=== PATIENT | female | born 1960 | race African-American/Black ===

== ENCOUNTER 2017-01-21 10:28 | Emergency (ER) | payer MEDICAID ==
[2017-01-21] MEDS ORDERED: CLONIDINE HCL 0.1 MG TABLET PO ONE (12:19)
--- NOTE | 2017-01-21 12:21 | ER Document Report ---
ED Medical Screen (RME) - General Chief Complaint: High Blood Pressure Stated Complaint: BLOOD PRESSURE PROBLEM Time Seen by Provider: 01/21/17 12:19 Notes: Patient was referred from her primary care doctor's office due to high blood pressure. Patient is prescribed clonidine 0.1 mg 2 times per day. She states that she never takes it twice a day and sometimes does not take it at all because she does not like the fact that it makes her sleepy. She says today she was going to her routine 3 month primary care visit. She states that the visit was noticed that her blood pressure was very high so she was sent here. She says 1 week ago she was having chest pain and dizziness however no chest pain for the last several days. No headaches for the last several days. She is still felt a little lightheaded and dizzy however today and yesterday. TRAVEL OUTSIDE OF THE [place] IN LAST 30 DAYS: No - Related Data Allergies/Adverse Reactions: No Known Allergies Allergy (Verified 09/06/14 11:53) Past Medical History - Past Medical History Cardiac Medical History: Reports: Hx Congestive Heart Failure - Grade 1/4 left ventricular diastolic dysfunction, Hx Heart Attack, Hx Hypertension Neurological Medical History: Reports: Hx Seizures Endocrine Medical History: Reports: Hx Diabetes Mellitus Type 2 Renal/ Medical History: Denies: Hx Peritoneal Dialysis Psychiatric Medical History: Reports: Hx Depression Past Surgical History: Reports: Hx Orthopedic Surgery - bilat feet - Immunizations Hx Diphtheria, Pertussis, Tetanus Vaccination: No Physical Exam - Vital signs Vitals: Temp Pulse Resp BP Pulse Ox 97.8 F 68 20 216/114 H 98 01/21/17 10:42 01/21/17 10:42 01/21/17 10:42 01/21/17 10:42 01/21/17 10:42 Course - Vital Signs Vital signs: Temp Pulse Resp BP Pulse Ox 97.8 F 68 20 240/110 H 98 01/21/17 10:42 01/21/17 10:42 01/21/17 10:42 01/21/17 12:10 01/21/17 10:42
[2017-01-21 12:55] LABS: ABSOLUTE BASOPHILS # (AUTO) 0.1 10^3/uL (0.0-0.2); ABSOLUTE EOSINOPHILS # (AUTO) 0.1 10^3/uL (0.0-0.6); ABSOLUTE MONOCYTES (AUTO) 0.6 10^3/uL (0.1-1.4); ABSOLUTE NEUT (AUTO) 5.7 10^3/uL (1.7-8.2); EOSINOPHILS % (AUTO) 1.2 % (0-6); HEMATOCRIT 41.4 % (36.0-47.0); HEMOGLOBIN 13.6 g/dL (12.0-15.5); HGB HCT DIFFERENCE -0.6; LYMPHOCYTES % (AUTO) 23.3 % (13-45); MEAN CORPUSCULAR HEMOGLOBIN 25.1 pg (27.0-33.4); MEAN CORPUSCULAR HGB CONC 32.9 g/dL (32.0-36.0); MEAN CORPUSCULAR VOLUME 76 fl (80-97); MONOCYTES % (AUTO) 6.9 % (3-13); RED BLOOD COUNT 5.43 10^6/uL (3.72-5.28); RED CELL DISTRIBUTION WIDTH 19.3 % (11.5-14.0); SEGMENTED NEUTROPHILS % (AUTO) 67.6 % (42-78); WHITE BLOOD COUNT 8.4 10^3/uL (4.0-10.5)
[2017-01-21 13:12] LABS: APPEARANCE,URINE CLEAR; BILIRUBIN,URINE NEGATIVE (NEGATIVE); GLUCOSE, URINE 150 mg/dL (NEGATIVE); KETONES,URINE NEGATIVE (NEGATIVE); LEUKOCYTE ESTERASE,URINE NEGATIVE (NEGATIVE); NITRITE,URINE NEGATIVE (NEGATIVE); PROTEIN,URINE NEGATIVE (NEGATIVE); URINE SPECIFIC GRAVITY 1.018; UROBILINOGEN,URINE NEGATIVE mg/dL (<2.0)
[2017-01-21 13:13] LABS: ALANINE AMINOTRANSFERASE 29 U/L (9-52); ALBUMIN 4.4 g/dL (3.5-5.0); ALKALINE PHOSPHATASE 108 U/L (38-126); ANION GAP 17 (5-19); ASPARTATE AMINO TRANSFERASE 28 U/L (14-36); BILIRUBIN,DIRECT 0.3 mg/dL (0.0-0.4); BILIRUBIN,TOTAL 0.3 mg/dL (0.2-1.3); BLOOD UREA NITROGEN 13 mg/dL (7-20); CALCIUM 9.5 mg/dL (8.4-10.2); CARBON DIOXIDE 21 mmol/L (22-30); CHLORIDE 107 mmol/L (98-107); CREATININE RESULT 0.85 mg/dL (0.52-1.25); GLUCOSE 234 mg/dL (75-110); POTASSIUM 3.6 mmol/L (3.6-5.0); SODIUM 144.9 mmol/L (137-145); TOTAL PROTEIN 8.3 g/dL (6.3-8.2)
--- NOTE | 2017-01-21 15:43 | ER Document Report ---
ED General - General Chief Complaint: High Blood Pressure Stated Complaint: BLOOD PRESSURE PROBLEM Time Seen by Provider: 01/21/17 12:19 TRAVEL OUTSIDE OF THE [place] IN LAST 30 DAYS: No - HPI Patient complains to provider of: Elevated blood pressure Notes: Patient was brought in today for evaluation of elevated blood pressure. Patient states she is currently on blood pressure medication however 1 makes her very sleepy therefore she does not like taking it she identifies his medication as clonidine patient states last time she took her clonidine was approximately less than 36 hours ago. Patient denies headache chest pain nausea vomiting fevers chills. Upon my evaluation patient is ambulating around the room anxious to leave the ER. - Related Data Allergies/Adverse Reactions: No Known Allergies Allergy (Verified 09/06/14 11:53) Past Medical History - Social History Smoking Status: Unknown if Ever Smoked Family History: CVA - mom dies at 42 year old from stroke father alive - Past Medical History Cardiac Medical History: Reports: Hx Congestive Heart Failure - Grade 1/4 left ventricular diastolic dysfunction, Hx Heart Attack, Hx Hypertension Neurological Medical History: Reports: Hx Seizures Endocrine Medical History: Reports: Hx Diabetes Mellitus Type 2 Renal/ Medical History: Denies: Hx Peritoneal Dialysis Psychiatric Medical History: Reports: Hx Depression Past Surgical History: Reports: Hx Orthopedic Surgery - bilat feet - Immunizations Hx Diphtheria, Pertussis, Tetanus Vaccination: No Hx Pneumococcal Vaccination: 11/16/13 Review of Systems - Review of Systems Constitutional: Other - Hypertension EENT: No symptoms reported Cardiovascular: No symptoms reported Respiratory: No symptoms reported Gastrointestinal: No symptoms reported Genitourinary: No symptoms reported Female Genitourinary: No symptoms reported Musculoskeletal: No symptoms reported Skin: No symptoms reported Hematologic/Lymphatic: No symptoms reported Neurological/Psychological: No symptoms reported Physical Exam - Vital signs Vitals: Temp Pulse Resp BP Pulse Ox 97.8 F 68 20 216/114 H 98 01/21/17 10:42 01/21/17 10:42 01/21/17 10:42 01/21/17 10:42 01/21/17 10:42 Interpretation: Hypertensive - General General appearance: Appears well, Alert - HEENT Head: Normocephalic, Atraumatic Eyes: Normal Pupils: PERRL - Respiratory Respiratory status: No respiratory distress Chest status: Nontender Breath sounds: Normal Chest palpation: Normal - Cardiovascular Rhythm: Regular Heart sounds: Normal auscultation Murmur: No - Abdominal Inspection: Normal Distension: No distension Bowel sounds: Normal Tenderness: Nontender Organomegaly: No organomegaly - Back Back: Normal, Nontender - Extremities General upper extremity: Normal inspection, Nontender, Normal color, Normal ROM , Normal temperature General lower extremity: Normal inspection, Nontender, Normal color, Normal ROM , Normal temperature, Normal weight bearing. No: French's sign - Neurological Neuro grossly intact: Yes Cognition: Normal Orientation: AAOx4 Thomson Coma Scale Eye Opening: Spontaneous Thomson Coma Scale Verbal: Oriented Thomson Coma Scale Motor: Obeys Commands Thomson Coma Scale Total: 15 Speech: Normal Motor strength normal: LUE, RUE, LLE, RLE Sensory: Normal - Psychological Associated symptoms: Normal affect, Normal mood - Skin Skin Temperature: Warm Skin Moisture: Dry Skin Color: Normal Course - Re-evaluation Re-evalutation: 01/21/17 18:42 Patient is noncompliant with her medications laboratory studies not show any signs of acute endorgan injury patient has no signs of urgency or emergency will discharge home. - Vital Signs Vital signs: Temp Pulse Resp BP Pulse Ox 97.8 F 68 20 240/110 H 98 01/21/17 10:42 01/21/17 10:42 01/21/17 10:42 01/21/17 12:10 01/21/17 10:42 - Laboratory Result Diagrams: 01/21/17 12:36 01/21/17 12:36 Laboratory results interpreted by me: 01/21/17 01/21/17 01/21/17 12:36 12:36 12:56 RBC 5.43 H MCV 76 L MCH 25.1 L RDW 19.3 H Carbon Dioxide 21 L Glucose 234 H Total Protein 8.3 H Urine Glucose (UA) 150 H Discharge - Discharge Clinical Impression: Hypertension Qualifiers: Hypertension type: unspecified Qualified Code(s): I10 - Essential (primary) hypertension Condition: Good Disposition: HOME, SELF-CARE Instructions: High Blood Pressure ([facility]), High Blood Pressure, Requiring Treatment ([facility]) Additional Instructions: Your blood pressure is elevated today please take your blood pressure medication as her doctor as prescribed. Please make sure that she follow-up with your kidney specialist and your primary care physician for further control of your blood pressure. Your blood pressure will be elevated if you do not take your blood pressure medication. Return to the ER for any concerns.
[2017-01-21 16:05] VITALS: BP 205/107
== END 2017-01-21 15:48 | disposition home or self-care (01) ==
LOC: ER 10:28
DX: I10 Essential (primary) hypertension (principal); Z79.899 Other long term (current) drug therapy
CPT/HCPCS: 99283; 36415; 85025; 80053; 81001; J3490

== ENCOUNTER 2018-01-31 16:51 | Emergency (ER) | payer MEDICAID ==
[2018-01-31 17:01] VITALS: BP 189/99
--- NOTE | 2018-01-31 19:03 | ER Document Report ---
ED General - General Chief Complaint: Insect Bite Stated Complaint: FOREIGN BODIES Time Seen by Provider: 01/31/18 18:02 Notes: 57-year-old female patient to the emergency department chief complaint of insects crawling out of her and all over her. Patient states that over the last several weeks she has noticed long stringy white bugs with large heads and brown legs and feet which float through the air and crawl over her. They are getting in her nose, ears and skin. Mostly the bugs are crawling into her eyes. States that they will jump out of her if she rubs apple cider vinegar on herself, bleach or Listerine. States that she has bugs jumping out of her eyes and nose. Has been having some nosebleeds. States that she has been spraying bug spray on herself and in the house. States that other people can see them and she is not crazy. TRAVEL OUTSIDE OF THE [place] IN LAST 30 DAYS: No - HPI Onset/Duration: Gradual, Worse Quality of pain: No pain Severity: Moderate Associated symptoms: None - Related Data Allergies/Adverse Reactions: No Known Allergies Allergy (Verified 09/06/14 11:53) Past Medical History - General Information source: Patient - Social History Smoking Status: Unknown if Ever Smoked Frequency of alcohol use: None Drug Abuse: None Lives with: Alone Family History: CVA - mom dies at 42 year old from stroke father alive - Past Medical History Cardiac Medical History: Reports: Hx Congestive Heart Failure - Grade 1/4 left ventricular diastolic dysfunction, Hx Heart Attack, Hx Hypertension Neurological Medical History: Reports: Hx Seizures Endocrine Medical History: Reports: Hx Diabetes Mellitus Type 2 Renal/ Medical History: Denies: Hx Peritoneal Dialysis Psychiatric Medical History: Reports: Hx Depression Past Surgical History: Reports: Hx Orthopedic Surgery - bilat feet - Immunizations Hx Diphtheria, Pertussis, Tetanus Vaccination: No Hx Pneumococcal Vaccination: 11/16/13 Review of Systems - Review of Systems Notes: Constitutional: denies: Chills, Diaphoresis, Fever, Malaise, Weakness EENT: denies: Eye discharge, Blurred vision, Tearing, Double vision, Nose congestion, Nose discharge, Throat swelling, Mouth pain Cardiovascular: denies: Palpitations, Heart racing, Orthopnea, Dyspnea, Chest pain Respiratory: denies: Cough, Hurts to breathe, Wheezing, Shortness of breath Gastrointestinal: denies: Abdominal pain, Diarrhea, Nausea, Vomiting, Black stools, bright red blood in stool Genitourinary: denies: Burning, Dysuria, Discharge, Frequency, Flank pain, Hematuria Musculoskeletal: denies: Joint pain, Joint swelling, Muscle pain, Muscle stiffness, back pain Hematologic/Lymphatic: denies: Anemia, Easy bleeding, Easy bruising, Blood clots Neurological/Psychological: denies: Confusion, Dementia, Depression, Loss of consciousness. Is complaining of bugs crawling all over her Skin: No lesions, no masses, no skin breakdown, no abscesses Physical Exam - Vital signs Vitals: Temp Pulse Resp BP Pulse Ox 98.4 F 95 20 189/99 H 99 01/31/18 16:59 01/31/18 16:59 01/31/18 16:59 01/31/18 16:59 01/31/18 16:59 Interpretation: Normal - General General appearance: Appears well, Alert - HEENT Head: Normocephalic, Atraumatic Eyes: Normal Cornea: Normal Eyelashes: Normal Pupils: PERRL Nasal: Normal - Respiratory Respiratory status: No respiratory distress Chest status: Nontender Breath sounds: Normal Chest palpation: Normal - Cardiovascular Rhythm: Regular Heart sounds: Normal auscultation Murmur: No - Abdominal Inspection: Normal Distension: No distension Bowel sounds: Normal Tenderness: Nontender Organomegaly: No organomegaly - Back Back: Normal, Nontender - Extremities General upper extremity: Normal inspection, Nontender, Normal color, Normal ROM , Normal temperature General lower extremity: Normal inspection, Nontender, Normal color, Normal ROM , Normal temperature, Normal weight bearing. No: French's sign - Neurological Neuro grossly intact: Yes Cognition: Normal Orientation: AAOx4 [place] Coma Scale Eye Opening: Spontaneous [place] Coma Scale Verbal: Oriented [place] Coma Scale Motor: Obeys Commands [place] Coma Scale Total: 15 Speech: Normal Motor strength normal: LUE, RUE, LLE, RLE Sensory: Normal - Psychological Associated symptoms: Normal affect, Normal mood, Visual hallucinations - And is convinced that she is seeing bugs on her at this time however this physician was unable to see any bugs crawling on her. I did use a blue light as well as ambient light and there were no obvious findings., Other - Skin Skin Temperature: Warm Skin Moisture: Dry Skin Color: Normal, Other - She does have a few small areas of redness on the second and third digit on her right foot distally. Does not appear to be any active parasites on her body. There are no active bugs. There does not appear to be any breakdown in the skin. Course - Re-evaluation Re-evalutation: 01/31/18 20:21 At this time I believe the patient is developing some delusional parasitosis. I have explained to her that I am concerned and that she needs to be evaluated by mental health. I am concerned as well that she may be harming herself by placing chemicals on her skin. She is currently here voluntarily. She is willing to stay overnight. I am going to check her labs and give her some Haldol and have mental health evaluate her for possible acute psychosis versus delusional issues. 01/31/18 21:27 Laboratory 01/31/18 01/31/18 01/31/18 19:55 19:55 19:55 WBC 8.0 RBC 4.77 Hgb 14.1 Hct 41.9 MCV 88 MCH 29.6 MCHC 33.7 RDW 14.5 H Plt Count 181 Seg Neutrophils % 58.3 Lymphocytes % 30.5 Monocytes % 8.2 Eosinophils % 1.7 Basophils % 1.3 Absolute Neutrophils 4.7 Absolute Lymphocytes 2.4 Absolute Monocytes 0.7 Absolute Eosinophils 0.1 Absolute Basophils 0.1 Sodium 139.6 Potassium 4.0 Chloride 106 Carbon Dioxide 26 Anion Gap 8 BUN 16 Creatinine 1.10 Est GFR ( Amer) > 60 Est GFR (Non-Af Amer) 51 L Glucose 97 Calcium 9.3 Total Bilirubin 0.3 Direct Bilirubin 0.1 Neonat Total Bilirubin Not Reportable Neonat Direct Bilirubin Not Reportable Neonat Indirect Bili Not Reportable AST 35 ALT 25 Alkaline Phosphatase 78 Total Protein 7.0 Albumin 3.9 Urine Color COLORLESS Urine Appearance CLEAR Urine pH 6.0 Ur Specific [place] 1.009 Urine Protein NEGATIVE Urine Glucose (UA) NEGATIVE Urine Ketones NEGATIVE Urine Blood NEGATIVE Urine Nitrite NEGATIVE Urine Bilirubin NEGATIVE Urine Urobilinogen NEGATIVE Ur Leukocyte Esterase NEGATIVE Urine WBC (Auto) 0 Urine RBC (Auto) 1 Squamous Epi Cells Auto <1 Urine Mucus (Auto) RARE Urine Ascorbic Acid NEGATIVE Salicylates 2.5 Urine Opiates Screen Urine Methadone Screen Acetaminophen < 10 L Ur Barbiturates Screen Ur Phencyclidine Scrn Ur Amphetamines Screen U Benzodiazepines Scrn Urine Cocaine Screen U Marijuana (THC) Screen Serum Alcohol < 10 01/31/18 19:55 WBC RBC Hgb Hct MCV MCH MCHC RDW Plt Count Seg Neutrophils % Lymphocytes % Monocytes % Eosinophils % Basophils % Absolute Neutrophils Absolute Lymphocytes Absolute Monocytes Absolute Eosinophils Absolute Basophils Sodium Potassium Chloride Carbon Dioxide Anion Gap BUN Creatinine Est GFR ( Amer) Est GFR (Non-Af Amer) Glucose Calcium Total Bilirubin Direct Bilirubin Neonat Total Bilirubin Neonat Direct Bilirubin Neonat Indirect Bili AST ALT Alkaline Phosphatase Total Protein Albumin Urine Color Urine Appearance Urine pH Ur Specific [place] Urine Protein Urine Glucose (UA) Urine Ketones Urine Blood Urine Nitrite Urine Bilirubin Urine Urobilinogen Ur Leukocyte Esterase Urine WBC (Auto) Urine RBC (Auto) Squamous Epi Cells Auto Urine Mucus (Auto) Urine Ascorbic Acid Salicylates Urine Opiates Screen NEGATIVE Urine Methadone Screen NEGATIVE Acetaminophen Ur Barbiturates Screen NEGATIVE Ur Phencyclidine Scrn NEGATIVE Ur Amphetamines Screen NEGATIVE U Benzodiazepines Scrn NEGATIVE Urine Cocaine Screen NEGATIVE U Marijuana (THC) Screen UNCONFIRMED POSITIVE Serum Alcohol - Vital Signs Vital signs: Temp Pulse Resp BP Pulse Ox 98.4 F 95 20 189/99 H 99 01/31/18 16:59 01/31/18 16:59 01/31/18 16:59 01/31/18 16:59 01/31/18 16:59 - Laboratory Result Diagrams: 01/31/18 19:55 01/31/18 19:55 Laboratory results interpreted by me: 01/31/18 01/31/18 19:55 19:55 RDW 14.5 H Est GFR (Non-Af Amer) 51 L Acetaminophen < 10 L - EKG Interpretation by Id EKG shows normal: Intervals, QRS Complexes, ST-T Waves. abnormal: Sherman - left axis Discharge - Discharge Clinical Impression: Delusions of parasitosis Condition: Fair
[2018-01-31] MEDS ORDERED: HALOPERIDOL 5 MG TABLET PO ONE (19:27)
[2018-01-31 20:14] LABS: ABSOLUTE BASOPHILS # (AUTO) 0.1 10^3/uL (0.0-0.2); ABSOLUTE EOSINOPHILS # (AUTO) 0.1 10^3/uL (0.0-0.6); ABSOLUTE LYMPHOCYTES (AUTO) 2.4 10^3/uL (0.5-4.7); ABSOLUTE MONOCYTES (AUTO) 0.7 10^3/uL (0.1-1.4); ABSOLUTE NEUT (AUTO) 4.7 10^3/uL (1.7-8.2); BASOPHILS % (AUTO) 1.3 % (0-2); EOSINOPHILS % (AUTO) 1.7 % (0-6); HEMATOCRIT 41.9 % (36.0-47.0); HEMOGLOBIN 14.1 g/dL (12.0-15.5); LYMPHOCYTES % (AUTO) 30.5 % (13-45); MEAN CORPUSCULAR HEMOGLOBIN 29.6 pg (27.0-33.4); MEAN CORPUSCULAR HGB CONC 33.7 g/dL (32.0-36.0); MEAN CORPUSCULAR VOLUME 88 fl (80-97); MONOCYTES % (AUTO) 8.2 % (3-13); PLATELET COUNT 181 10^3/uL (150-450); RED BLOOD COUNT 4.77 10^6/uL (3.72-5.28); RED CELL DISTRIBUTION WIDTH 14.5 % (11.5-14.0); SEGMENTED NEUTROPHILS % (AUTO) 58.3 % (42-78); TOTAL CELLS COUNTED % (AUTO) 100 %
[2018-01-31] MEDS ORDERED: BENZTROPINE MESYLATE 1 MG TABLET PO ONE (20:22)
[2018-01-31 20:23] LABS: ALANINE AMINOTRANSFERASE 25 U/L (9-52); ALBUMIN 3.9 g/dL (3.5-5.0); ALKALINE PHOSPHATASE 78 U/L (38-126); ANION GAP 8 (5-19); ASPARTATE AMINO TRANSFERASE 35 U/L (14-36); BILIRUBIN,DIRECT 0.1 mg/dL (0.0-0.4); BILIRUBIN,TOTAL 0.3 mg/dL (0.2-1.3); BLOOD UREA NITROGEN 16 mg/dL (7-20); CALCIUM 9.3 mg/dL (8.4-10.2); CARBON DIOXIDE 26 mmol/L (22-30); CHLORIDE 106 mmol/L (98-107); GLUCOSE 97 mg/dL (75-110); SALICYLATE 2.5 mg/dL (2.0-20.0); SODIUM 139.6 mmol/L (137-145)
[2018-01-31 20:28] LABS: ACETAMINOPHEN < 10 ug/mL (10-30); ALCOHOL < 10 mg/dL (NONE DETECTED)
[2018-01-31 20:32] LABS: APPEARANCE,URINE CLEAR; BILIRUBIN,URINE NEGATIVE (NEGATIVE); COLOR,URINE COLORLESS; GLUCOSE, URINE NEGATIVE (NEGATIVE); KETONES,URINE NEGATIVE (NEGATIVE); LEUKOCYTE ESTERASE,URINE NEGATIVE (NEGATIVE); NITRITE,URINE NEGATIVE (NEGATIVE); PROTEIN,URINE NEGATIVE (NEGATIVE); URINE SPECIFIC GRAVITY 1.009; UROBILINOGEN,URINE NEGATIVE mg/dL (<2.0)
[2018-01-31 20:46] LABS: URINE AMPHETAMINES SCREEN NEGATIVE; URINE BARBITURATES SCREEN NEGATIVE; URINE BENZODIAZEPINES SCREEN NEGATIVE; URINE COCAINE SCREEN NEGATIVE; URINE MARIJUANA (THC) SCREEN UNCONFIRMED POSITIVE; URINE METHADONE SCREEN NEGATIVE; URINE PHENCYCLIDINE SCREEN NEGATIVE
--- NOTE | 2018-01-31 21:38 | EKG REPORT ---
SEVERITY:- ABNORMAL ECG - SINUS RHYTHM LEFT AXIS DEVIATION LVH WITH SECONDARY REPOLARIZATION ABNORMALITY : Confirmed by: Feng Andrews MD 31-Jan-2018 21:37:46
== END 2018-02-01 16:34 | disposition home or self-care (01) ==
LOC: ER 16:51
DX: F22 Delusional disorders (principal); E11.9 Type 2 diabetes mellitus without complications; I50.9 Heart failure, unspecified; I11.0 Hypertensive heart disease with heart failure; I25.2 Old myocardial infarction
CPT/HCPCS: 93005; 99285; 36415; 80307 ×4; 85025; 80053; 81001; 93010; J3490 ×2

== ENCOUNTER 2018-06-06 18:17 | Emergency (ER) | payer MEDICAID, OTHER ==
--- NOTE | 2018-06-06 19:00 | ER Document Report ---
ED Medical Screen (RME) - General Chief Complaint: Neck Swelling Stated Complaint: NECK PAIN, LIGHTHEADED Time Seen by Provider: 06/06/18 18:38 Notes: Patient is a 58 year old female that presents to the emergency department for chief complaint of having tongue paresthesias that occurred about 2 weeks ago, and she also woke up this morning with pain and swelling around her left ear and she is concerned about that as well, she was told 2 weeks ago by her piece goods packer to come to the ED to evaluate for possible stroke but did not, the symptoms did resolve but she was still concerned about it.. []. ROS: Other than noted above, the 12 point review of systems was reviewed with the patient and were negative, all pertinent findings are included in the HPI. PHYSICAL EXAMINATION: Vital signs reviewed. GENERAL: Well-appearing, well-nourished and in no acute distress. HEAD: Atraumatic, normocephalic. EYES: Pupils equal round extraocular movements intact, conjunctiva are normal. ENT: Nares patent, there is a palpable node, just inferior to the left ear posterior to the angle of the mandible. NECK: Normal range of motion CV: Heart regular rate and rhythm LUNGS: No respiratory distress Musculoskeletal: Normal range of motion NEUROLOGICAL: Normal speech PSYCH: Normal mood, normal affect. MDM: Patient seen and examined for rapid initial assessment. Vital signs reviewed. A comprehensive ED assessment and evaluation of the patient, analysis of test results and completion of the medical decision making process will be conducted by additional ED providers. *Note is created using voice recognition software and may contain spelling, syntax or grammatical errors. TRAVEL OUTSIDE OF THE [place] IN LAST 30 DAYS: No - Related Data Allergies/Adverse Reactions: No Known Allergies Allergy (Verified 06/06/18 18:50) Past Medical History - Social History Chew tobacco use (# tins/day): No Frequency of alcohol use: None Drug Abuse: None - Past Medical History Cardiac Medical History: Reports: Hx Congestive Heart Failure - Grade 1/4 left ventricular diastolic dysfunction, Hx Heart Attack, Hx Hypertension Neurological Medical History: Reports: Hx Seizures Endocrine Medical History: Reports: Hx Diabetes Mellitus Type 2 Renal/ Medical History: Denies: Hx Peritoneal Dialysis GI Medical History: Reports: Hx Gastroesophageal Reflux Disease Psychiatric Medical History: Reports: Hx Depression Past Surgical History: Reports: Hx Orthopedic Surgery - bilat feet - Immunizations Hx Diphtheria, Pertussis, Tetanus Vaccination: No Physical Exam - Vital signs Vitals: Temp Pulse Resp BP Pulse Ox 98.1 F 73 18 214/105 H 98 06/06/18 18:34 06/06/18 18:34 06/06/18 18:34 06/06/18 18:34 06/06/18 18:34 Course - Vital Signs Vital signs: Temp Pulse Resp BP Pulse Ox 98.1 F 73 18 214/105 H 98 06/06/18 18:34 06/06/18 18:34 06/06/18 18:34 06/06/18 18:34 06/06/18 18:34
[2018-06-06 19:27] LABS: ABSOLUTE BASOPHILS # (AUTO) 0.1 10^3/uL (0.0-0.2); ABSOLUTE EOSINOPHILS # (AUTO) 0.1 10^3/uL (0.0-0.6); ABSOLUTE LYMPHOCYTES (AUTO) 1.1 10^3/uL (0.5-4.7); ABSOLUTE MONOCYTES (AUTO) 0.7 10^3/uL (0.1-1.4); BASOPHILS % (AUTO) 0.7 % (0-2); EOSINOPHILS % (AUTO) 1.1 % (0-6); HEMATOCRIT 42.3 % (36.0-47.0); HEMOGLOBIN 14.7 g/dL (12.0-15.5); LYMPHOCYTES % (AUTO) 14.1 % (13-45); MEAN CORPUSCULAR HEMOGLOBIN 29.4 pg (27.0-33.4); MEAN CORPUSCULAR HGB CONC 34.7 g/dL (32.0-36.0); MEAN CORPUSCULAR VOLUME 85 fl (80-97); MONOCYTES % (AUTO) 8.6 % (3-13); PLATELET COUNT 243 10^3/uL (150-450); RED CELL DISTRIBUTION WIDTH 13.6 % (11.5-14.0); SEGMENTED NEUTROPHILS % (AUTO) 75.5 % (42-78); TOTAL CELLS COUNTED % (AUTO) 100 %; WHITE BLOOD COUNT 7.9 10^3/uL (4.0-10.5)
--- NOTE | 2018-06-06 19:38 | RADIOLOGY REPORT (SQ) ---
EXAM DESCRIPTION: CT HEAD WITHOUT COMPLETED DATE/TIME: 06/06/2018 7:20 pm REASON FOR STUDY: facial paresthesias, left preauricular node COMPARISON: 10/06/2014 TECHNIQUE: Axial images acquired through the brain without intravenous contrast. Images reviewed wi th bone, brain and subdural windows. Images stored on PACS. All CT scanners at this facility use dose modulation, iterative reconstruction, and/or weight based d osing when appropriate to reduce radiation dose to as low as reasonably achievable (ALARA). [facility]: Dose Right [facility]: CareDose [facility]: Dose Right [facility]: Teradose 4D [facility]: Smart Ariisto RADIATION DOSE: CT Rad equipment meets quality standard of care and radiation dose reduction techniq ues were employed. CTDIvol: 53.2 mGy. DLP: 964 mGy-cm. mGy. LIMITATIONS: None. FINDINGS: VENTRICLES: Normal size and contour. CEREBRUM: No masses. No hemorrhage. No midline shift. No evidence for acute infarction. Normal gra y/white matter differentiation. No areas of low density in the white matter. CEREBELLUM: No masses. No hemorrhage. No alteration of density. No evidence for acute infarction. EXTRAAXIAL SPACES: No fluid collections. No masses. ORBITS AND GLOBE: No intra- or extraconal masses. Normal contour of globe without masses. CALVARIUM: No fracture. PARANASAL SINUSES: No fluid or mucosal thickening. SOFT TISSUES: No mass or hematoma. OTHER: No other significant finding. IMPRESSION: No acute intracranial findings. EVIDENCE OF ACUTE STROKE: NO. COMMENT: Quality ID # [id number]: Final reports with documentation of one or more dose reduction techniques (e.g., Automated exposure control, adjustment of the mA and/or kV according to patient size, use of iterative reconstruction technique) TECHNICAL DOCUMENTATION: JOB ID: [id number] [place]-72 2010 [employer]- All Rights Reserved Reading location - IP/workstation name: [employer]
[2018-06-06 19:51] LABS: ALANINE AMINOTRANSFERASE 30 U/L (9-52); ALBUMIN 4.4 g/dL (3.5-5.0); ALKALINE PHOSPHATASE 86 U/L (38-126); ANION GAP 11 (5-19); ASPARTATE AMINO TRANSFERASE 34 U/L (14-36); BILIRUBIN,DIRECT 0.2 mg/dL (0.0-0.4); BILIRUBIN,TOTAL 0.3 mg/dL (0.2-1.3); BLOOD UREA NITROGEN 15 mg/dL (7-20); CALCIUM 9.7 mg/dL (8.4-10.2); CARBON DIOXIDE 31 mmol/L (22-30); CHLORIDE 102 mmol/L (98-107); GLUCOSE 106 mg/dL (75-110); POTASSIUM 4.1 mmol/L (3.6-5.0); SODIUM 143.9 mmol/L (137-145); TOTAL PROTEIN 7.7 g/dL (6.3-8.2)
--- NOTE | 2018-06-06 22:22 | ER Document Report ---
ED General - General Chief Complaint: Neck Swelling Stated Complaint: NECK PAIN, LIGHTHEADED Time Seen by Provider: 06/06/18 18:38 Mode of Arrival: Ambulatory Information source: Patient Notes: 58-year-old female with a past medical history significant for hypertension presents emergency department for concern of a stroke. Patient states about 3 weeks ago in the middle of the night she woke up with a numb tongue and left face. Patient states that she got up and took aspirin then went back to bed. When she woke up her symptoms were resolved. Today she has a lump to the Left neck. Patient is concerned that the 2 symptoms may be related. She denies any fever, chills, rhinorrhea, sore throat, cough, throat swelling, vision changes, speech changes, numbness, tingling, weakness, chest pain, shortness of breath. TRAVEL OUTSIDE OF THE [place] IN LAST 30 DAYS: No - HPI Onset: Just prior to arrival Onset/Duration: Persistent Quality of pain: Dull Severity: Mild Associated symptoms: None Exacerbated by: Denies Relieved by: Denies Similar symptoms previously: No Recently seen / treated by doctor: No - Related Data Allergies/Adverse Reactions: No Known Allergies Allergy (Verified 06/06/18 18:50) Past Medical History - General Information source: Patient - Social History Smoking Status: Never Smoker Chew tobacco use (# tins/day): No Frequency of alcohol use: None Drug Abuse: None Family History: CVA - mom dies at 42 year old from stroke father alive Patient has suicidal ideation: No Patient has homicidal ideation: No - Past Medical History Cardiac Medical History: Reports: Hx Congestive Heart Failure - Grade 1/4 left ventricular diastolic dysfunction, Hx Heart Attack, Hx Hypertension Neurological Medical History: Reports: Hx Seizures Endocrine Medical History: Reports: Hx Diabetes Mellitus Type 2 Renal/ Medical History: Denies: Hx Peritoneal Dialysis GI Medical History: Reports: Hx Gastroesophageal Reflux Disease Psychiatric Medical History: Reports: Hx Depression Past Surgical History: Reports: Hx Orthopedic Surgery - bilat feet - Immunizations Hx Diphtheria, Pertussis, Tetanus Vaccination: No Hx Pneumococcal Vaccination: 11/16/13 Review of Systems - Review of Systems Constitutional: No symptoms reported EENT: No symptoms reported Cardiovascular: No symptoms reported Respiratory: No symptoms reported Gastrointestinal: No symptoms reported Genitourinary: No symptoms reported Female Genitourinary: No symptoms reported Musculoskeletal: No symptoms reported Skin: No symptoms reported Hematologic/Lymphatic: No symptoms reported Neurological/Psychological: No symptoms reported -: Yes All other systems reviewed and negative Physical Exam - Vital signs Vitals: Temp Pulse Resp BP Pulse Ox 98.1 F 73 18 214/105 H 98 06/06/18 18:34 06/06/18 18:34 06/06/18 18:34 06/06/18 18:34 06/06/18 18:34 - Notes Notes: PHYSICAL EXAMINATION: GENERAL: Well-appearing, well-nourished and in no acute distress. HEAD: Atraumatic, normocephalic. EYES: Pupils equal round and reactive to light, extraocular movements intact, conjunctiva are normal. ENT: Nares patent, oropharynx clear without exudates. Moist mucous membranes. NECK: Normal range of motion, supple. Palpable lymph node to the left neck, inferior to the left ear and posterior to the angle of the mandible. LUNGS: Breath sounds clear to auscultation bilaterally and equal. No wheezes rales or rhonchi. HEART: Regular rate and rhythm without murmurs ABDOMEN: Soft, nontender, nondistended abdomen. No guarding, no rebound. No masses appreciated. Female : deferred Musculoskeletal: Normal range of motion, no pitting or edema. No cyanosis. NEUROLOGICAL: Cranial nerves grossly intact. Normal speech, normal gait. Normal sensory, motor exams PSYCH: Normal mood, normal affect. SKIN: Warm, Dry, normal turgor, no rashes or lesions noted. Course - Re-evaluation Re-evalutation: 06/06/18 22:24 Labs and imaging obtained. Labs are unremarkable. Head CT was done. No acute process was identified. EKG was done. It did not show an acute process. Patient's vitals rechecked. Her blood pressure has decreased. Patient has no neurologic symptoms. She has a normal neurologic exam. Patient denies any chest pain, shortness of breath, abdominal pain. She does have a palpable lymph node to the left neck. Instructed the patient to take iwvs-kgo-otlohub medication as needed for symptom relief, to follow-up with her primary care physician this week, and to return for worsening symptoms. Patient is agreeable with plan of care. EKG: Ventricular rate 82, HI interval 240, castration 94, QTc 514, sinus rhythm. First-degree AV block. Left axis deviation. No ST segment elevation. EKG is similar to that done on 01/31/18. - Vital Signs Vital signs: Temp Pulse Resp BP Pulse Ox 98.1 F 73 18 214/105 H 98 06/06/18 18:34 06/06/18 18:34 06/06/18 18:34 06/06/18 18:34 06/06/18 18:34 - Laboratory Result Diagrams: 06/06/18 19:02 06/06/18 19:02 Laboratory results interpreted by me: 06/06/18 19:02 Carbon Dioxide 31 H Discharge - Discharge Clinical Impression: Lymphadenopathy Condition: Good Disposition: HOME, SELF-CARE Instructions: Lymphadenopathy ([facility]) Additional Instructions: Take upty-jte-pjsdgot medication as needed for symptom relief, follow-up with your primary care physician this week, and return to the emergency department for worsening symptoms. Referrals: GISSELLE GAINES MD [ACTIVE STAFF] - Follow up as needed
[2018-06-06 22:36] VITALS: BP 183/96
--- NOTE | 2018-06-07 08:54 | EKG REPORT ---
SEVERITY:- ABNORMAL ECG - SINUS RHYTHM FIRST DEGREE AV BLOCK LEFT AXIS DEVIATION LVH WITH SECONDARY REPOLARIZATION ABNORMALITY PROLONGED QT INTERVAL : Confirmed by: Feng Andrews MD 07-Jun-2018 08:54:04
== END 2018-06-06 23:32 | disposition home or self-care (01) ==
LOC: ER 18:17
DX: R59.1 Generalized enlarged lymph nodes (principal); I10 Essential (primary) hypertension; E11.9 Type 2 diabetes mellitus without complications; I44.0 Atrioventricular block, first degree
CPT/HCPCS: 36415; 70450; 80053; 84484; 85025; 93005; 93010; 99284

== ENCOUNTER → 2018-12-23 | Emergency (ER) | payer MEDICAID ==
[~2018-12-23] MED LIST: ASPIRIN 81 MG TABLET, CHEWABLE PO ONE; CALCIUM GLUCONATE 1000 MG/10 ML INJ IV ONE; INSULIN REG, HUMAN 100 UNIT/ML 3 ML VIAL (PYX) IV ONE; MORPHINE SULFATE 10 MG/ML INJ IV ONE; NORMAL SALINE 1000 ML 1,000 ML IV ONE
--- NOTE | 2018-12-23 13:21 | ER Document Report ---
ED Medical Screen (RME) - General Chief Complaint: Chest Pain Stated Complaint: CHEST PAIN/VAGINAL BLEEDING Time Seen by Provider: 12/23/18 13:08 Mode of Arrival: Wheelchair Information source: Patient Notes: Patient presents emergency department with complaints of chest pain for years, facial twitching on the left side that started this morning and vaginal bleed for the past 3 months. Patient reports she has had chest pain since 2013. She reports she is never had a cath. Patient reports she experiences the vaginal bleeding when she wipes. Patient reports she has been drinking a lot of milk lately. Difficult conversation. Respiratory rate even unlabored speaking in a clear voice. Left-sided facial twitching noted. Denies history of strokes. I have greeted and performed a rapid initial assessment of this patient. A comprehensive ED assessment and evaluation of the patient, analysis of test results and completion of the medical decision making process will be conducted by additional ED providers. Dictation of this chart was performed using voice recognition software; therefore, there may be some unintended grammatical errors. TRAVEL OUTSIDE OF THE [place] IN LAST 30 DAYS: No - Related Data Allergies/Adverse Reactions: No Known Allergies Allergy (Verified 12/23/18 12:26) Past Medical History - Social History Frequency of alcohol use: None Drug Abuse: None - Past Medical History Cardiac Medical History: Reports: Hx Congestive Heart Failure - Grade 1/4 left ventricular diastolic dysfunction, Hx Heart Attack, Hx Hypertension Neurological Medical History: Reports: Hx Seizures Endocrine Medical History: Reports: Hx Diabetes Mellitus Type 2 Renal/ Medical History: Denies: Hx Peritoneal Dialysis GI Medical History: Reports: Hx Gastroesophageal Reflux Disease Psychiatric Medical History: Reports: Hx Depression Past Surgical History: Reports: Hx Orthopedic Surgery - bilat feet - Immunizations Hx Diphtheria, Pertussis, Tetanus Vaccination: No Physical Exam - Vital signs Vitals: Temp Pulse Resp BP Pulse Ox 98.3 F 101 H 18 131/90 H 93 12/23/18 12:32 12/23/18 12:32 12/23/18 12:32 12/23/18 12:32 12/23/18 12:32 Course - Vital Signs Vital signs: Temp Pulse Resp BP Pulse Ox 98.3 F 101 H 18 131/90 H 93 12/23/18 12:32 12/23/18 12:32 12/23/18 12:32 12/23/18 12:32 12/23/18 12:32
--- NOTE | 2018-12-23 13:51 | RADIOLOGY REPORT (SQ) ---
EXAM DESCRIPTION: CHEST 2 VIEWS COMPLETED DATE/TIME: 12/23/2018 1:37 pm REASON FOR STUDY: cp COMPARISON: PA and lateral views of the chest from 09/06/2014 EXAM PARAMETERS: NUMBER OF VIEWS: two views TECHNIQUE: Digital Frontal and Lateral radiographic views of the chest acquired. RADIATION DOSE: NA LIMITATIONS: none FINDINGS: LUNGS AND PLEURA: No consolidation, pleural effusion or pneumothorax. MEDIASTINUM AND HILAR STRUCTURES: No mediastinal or hilar contour abnormality. HEART AND VASCULAR STRUCTURES: No cardiomegaly. The pulmonary vasculature is within normal limits. BONES: No acute findings. HARDWARE: None in the chest. OTHER: No other finding. IMPRESSION: No acute cardiopulmonary process. TECHNICAL DOCUMENTATION: JOB ID: [id number] [employer]- All Rights Reserved Reading location - IP/workstation name: [email or web address]
[2018-12-23 14:22] LABS: ABSOLUTE BASOPHILS # (AUTO) 0.1 10^3/uL (0.0-0.2); ABSOLUTE LYMPHOCYTES (AUTO) 1.4 10^3/uL (0.5-4.7); ABSOLUTE MONOCYTES (AUTO) 0.6 10^3/uL (0.1-1.4); ABSOLUTE NEUT (AUTO) 5.8 10^3/uL (1.7-8.2); BASOPHILS % (AUTO) 1.1 % (0-2); EOSINOPHILS % (AUTO) 0.5 % (0-6); HEMOGLOBIN 15.7 g/dL (12.0-15.5); LYMPHOCYTES % (AUTO) 18.1 % (13-45); MEAN CORPUSCULAR HEMOGLOBIN 28.7 pg (27.0-33.4); MEAN CORPUSCULAR HGB CONC 33.3 g/dL (32.0-36.0); MEAN CORPUSCULAR VOLUME 86 fl (80-97); MONOCYTES % (AUTO) 7.9 % (3-13); PLATELET COUNT 266 10^3/uL (150-450); RED BLOOD COUNT 5.45 10^6/uL (3.72-5.28); RED CELL DISTRIBUTION WIDTH 13.3 % (11.5-14.0); SEGMENTED NEUTROPHILS % (AUTO) 72.4 % (42-78); TOTAL CELLS COUNTED % (AUTO) 100 %
[2018-12-23 15:40] LABS: APPEARANCE,URINE SLIGHTLY-CLOUDY; BILIRUBIN,URINE NEGATIVE (NEGATIVE); COLOR,URINE YELLOW; GLUCOSE, URINE >=500 mg/dL (NEGATIVE); KETONES,URINE NEGATIVE (NEGATIVE); LEUKOCYTE ESTERASE,URINE LARGE (NEGATIVE); NITRITE,URINE NEGATIVE (NEGATIVE); PROTEIN,URINE NEGATIVE (NEGATIVE); URINE SPECIFIC GRAVITY 1.023; UROBILINOGEN,URINE NEGATIVE mg/dL (<2.0)
[2018-12-23 15:51] LABS: ALBUMIN 4.5 g/dL (3.5-5.0); ALKALINE PHOSPHATASE 113 U/L (38-126); ANION GAP 15 (5-19); ASPARTATE AMINO TRANSFERASE 40 U/L (14-36); BILIRUBIN,DIRECT 0.1 mg/dL (0.0-0.4); BILIRUBIN,TOTAL 0.6 mg/dL (0.2-1.3); BLOOD UREA NITROGEN 50 mg/dL (7-20); CALCIUM 9.9 mg/dL (8.4-10.2); CARBON DIOXIDE 23 mmol/L (22-30); CHLORIDE 87 mmol/L (98-107); CREATINE KINASE 112 U/L (30-135); TOTAL PROTEIN 7.8 g/dL (6.3-8.2)
[2018-12-23 16:06] LABS: GLUCOSE 929 mg/dL (75-110); POTASSIUM 6.4 mmol/L (3.6-5.0)
--- NOTE | 2018-12-23 16:50 | ER Document Report ---
ED General - General Chief Complaint: Chest Pain Stated Complaint: CHEST PAIN/VAGINAL BLEEDING Time Seen by Provider: 12/23/18 13:08 Primary Care Provider: CORBIN MAGAÑA FNP-C [Primary Care Provider] - Follow up as needed Mode of Arrival: Wheelchair TRAVEL OUTSIDE OF THE [place] IN LAST 30 DAYS: No - HPI Notes: Patient is a 58-year-old female who presents the emergency department for evaluation of multiple complaints. She is an extremely poor historian. Initially she complains to me of "heartburn." She states is been ongoing for some time, is almost constant. She states is worsened by food. On further questioning she states is also worsened by exertion. She points to her epigastrium, states the pain seems to originate there and radiates up. She also states that the pain radiates in her legs. I asked if she has shortness of breath, nausea, diaphoresis with the symptoms. She states simply "yes." Patient also states she is had vaginal bleeding with wiping every day for the last several months. She has a history of hypothyroidism, admits she has not been taking her Synthroid. She also takes a blood pressure medicine, but she is unsure which one. Patient also states that the left side of her face has been twitching since this morning as well. - Related Data Allergies/Adverse Reactions: No Known Allergies Allergy (Verified 12/23/18 12:26) Past Medical History - General Information source: Patient - Social History Smoking Status: Former Smoker Frequency of alcohol use: None Drug Abuse: None Family History: CVA - mom dies at 42 year old from stroke father alive, Malignancy Patient has suicidal ideation: No Patient has homicidal ideation: No - Past Medical History Cardiac Medical History: Reports: Hx Congestive Heart Failure - Grade 1/4 left ventricular diastolic dysfunction, Hx Hypertension Neurological Medical History: Reports: Hx Seizures Endocrine Medical History: Reports: Hx Diabetes Mellitus Type 2 - "Borderline" per patient Renal/ Medical History: Denies: Hx Peritoneal Dialysis GI Medical History: Reports: Hx Gastroesophageal Reflux Disease Psychiatric Medical History: Reports: Hx Depression Past Surgical History: Reports: Hx Orthopedic Surgery - bilat feet - Immunizations Hx Diphtheria, Pertussis, Tetanus Vaccination: No Hx Pneumococcal Vaccination: 11/16/13 Review of Systems - Review of Systems Constitutional: No symptoms reported EENT: No symptoms reported Cardiovascular: See HPI Respiratory: See HPI Gastrointestinal: See HPI Genitourinary: No symptoms reported Musculoskeletal: No symptoms reported Skin: No symptoms reported Neurological/Psychological: See HPI Physical Exam - Vital signs Vitals: Temp Pulse Resp BP Pulse Ox 98.3 F 101 H 18 131/90 H 93 12/23/18 12:32 12/23/18 12:32 12/23/18 12:32 12/23/18 12:32 12/23/18 12:32 - Notes Notes: This is a 58-year-old female who appears her stated age in no acute distress. She has intermittent left-sided facial twitching. Vital signs reviewed, please refer to chart. Head is normocephalic, atraumatic. Pupils equal round, reactive to light. Neck is supple without meningismus. Heart is regular rate and rhyth m, systolic murmur noted. Lungs are clear to auscultation bilaterally. Abdomen is soft, nontender, normoactive bowel sounds throughout. Extremities without cyanosis, clubbing. Posterior calves are nontender. Peripheral pulses are equal. Skin is warm and dry. Patient is awake, alert, oriented x3, although slow to answer questions. She initially states that the date is her birthday, but then corrects this rapidly. Cranial nerves II - XII are grossly intact without focal neurological deficits but she continues to demonstrate this left- sided intermittent facial twitching, which seems to go away with intention. Strength is plus 5 out of 5 bilateral upper and lower extremities. Sensation is intact. Reflexes symmetrical. Intact lpnyjx-ygum-axkips, rapid alternating movements, qyey-lj-nxia. Course - Re-evaluation Re-evalutation: 12/23/18 16:53 Patient is a 58-year-old female who presents the emergency department for evaluation. She is a very difficult historian. From what I can glean from her medical records, it seems that she is extremely noncompliant, and has been so in the past. She was placed on a engine monitor and laboratory investigations were as ordered through triage. She was given aspirin. Laboratory investigations revealed significant hyperkalemia, significant hyperglycemia with a blood glucose of over 900. She is not acidotic. She is given some fluids, calcium gluconate, and started on insulin drip. CT scan of the head is pending at this time. I do not see any focal neurological deficits, but certainly I do not have a clear explanation for this left-sided facial twitching. Patient's blood pressures have been borderline at best. She would not tolerate nitroglycerin to help with her chest pain, which is ongoing. She is given morphine. Due to her elevated troponin and this ongoing chest pain, I am inclined to transfer this patient. Awaiting CT scan results before any ant icoagulants beyond the aspirin are added. We will continue to monitor. 12/23/18 17:[address] Cox, medicine physician at [facility]. He states he believes it is likely the troponin is secondary to renal issues, but as this patient continues to have pain I do not believe she meets criteria to stay here as an end STEMI. He will happily except the patient in transfer. Urine and blood osmolality ordered and pending at this time. Patient on insulin drip, IV fluids. We will continue to monitor until bed is available for transfer. 12/23/18 19:35 Patient remains stable, still awaiting transfer to [facility]. Repeat labs ordered. - Vital Signs Vital signs: Temp Pulse Resp BP Pulse Ox 98.5 F 101 H 18 104/78 98 12/23/18 19:06 12/23/18 12:32 12/23/18 19:06 12/23/18 19:06 12/23/18 19:06 - Laboratory Result Diagrams: 12/23/18 13:51 12/23/18 15:22 Laboratory results interpreted by me: 12/23/18 12/23/18 12/23/18 13:51 15:22 15:22 RBC 5.45 H Hgb 15.7 H Sodium 125.3 L Potassium 6.4 H* Chloride 87 L BUN 50 H Creatinine 2.83 H Est GFR ( Amer) 21 L Est GFR (MDRD) Non-Af 17 L Glucose 929 H* Serum Osmolality Magnesium 2.6 H AST 40 H TSH Urine Glucose (UA) >=500 H Urine Blood LARGE H Ur Leukocyte Esterase LARGE H 12/23/18 12/23/18 15:22 15:22 RBC Hgb Sodium Potassium Chloride BUN Creatinine Est GFR ( Amer) Est GFR (MDRD) Non-Af Glucose Serum Osmolality 328 H Magnesium AST TSH 6.23 H Urine Glucose (UA) Urine Blood Ur Leukocyte Esterase - Diagnostic Test Radiology reviewed: Reports reviewed Radiology results interpreted by me: 12/23/18 17:58 Chest X-Ray 12/23/18 13:15 IMPRESSION: No acute cardiopulmonary process. Head CT 12/23/18 16:39 IMPRESSION: NO ACUTE INTRACRANIAL FINDINGS. EVIDENCE OF ACUTE STROKE: NO. - EKG Interpretation by Me Additional EKG results interpreted by me: 12/23/18 16:52 Sinus tachycardia with a rate of 101 bpm. Left axis deviation. LVH. ST depression and deep T wave inversions in the lateral leads, concerning for ischemia versus LVH with strain. Critical Care Note - Critical Care Note Total time excluding time spent on procedures (mins): 30 Discharge - Discharge Clinical Impression: NSTEMI (non-ST elevated myocardial infarction), Hyperkalemia, Hyperglycemia, hyperosmolar hyperglycemic state Condition: Stable Disposition: [facility] Admitting Provider: Dr. Cox Unit Admitted: IMCU Referrals: CORBIN MAGAÑA, KATIEC [Primary Care Provider] - Follow up as needed
--- NOTE | 2018-12-23 17:12 | RADIOLOGY REPORT (SQ) ---
EXAM DESCRIPTION: CT HEAD WITHOUT COMPLETED DATE/TIME: 12/23/2018 4:58 pm REASON FOR STUDY: left facial symptoms COMPARISON: 06/06/2018 TECHNIQUE: Axial images acquired through the brain without intravenous contrast. Images reviewed wit h bone, brain and subdural windows. Images stored on PACS. All CT scanners at this facility use dose modulation, iterative reconstruction, and/or weight based d osing when appropriate to reduce radiation dose to as low as reasonably achievable (ALARA). [facility]: Dose Right [facility]: CareDose [facility]: Dose Right [facility]: Teradose 4D [facility]: Smart [employer] RADIATION DOSE: CT Rad equipment meets quality standard of care and radiation dose reduction techniq ues were employed. CTDIvol: 53.2 mGy. DLP: 1017 mGy-cm.. LIMITATIONS: None. FINDINGS: VENTRICLES: Normal size and contour. CEREBRUM: No masses. No hemorrhage. No midline shift. Age appropriate white matter. No evidence for a cute infarction. CEREBELLUM: No masses. No hemorrhage. No alteration of density. No evidence for acute infarction. EXTRA-AXIAL SPACES: No fluid collections. ORBITS AND GLOBE: No intra- or extraconal masses. Normal contour of globe without masses. CALVARIUM: No fracture. PARANASAL SINUSES: No fluid or mucosal thickening. SOFT TISSUES: No mass or hematoma. OTHER: No other significant finding. IMPRESSION: NO ACUTE INTRACRANIAL FINDINGS. EVIDENCE OF ACUTE STROKE: NO. TECHNICAL DOCUMENTATION: JOB ID: [id number] Quality ID # [id number]: Final reports with documentation of one or more dose reduction techniques (e.g., Au tomated exposure control, adjustment of the mA and/or kV according to patient size, use of iterative reconstruction technique) 2010 [facility]- All Rights Reserved Reading location - IP/workstation name: [email or web address]
[2018-12-23 18:30] LABS: URINE AMPHETAMINES SCREEN NEGATIVE; URINE BARBITURATES SCREEN NEGATIVE; URINE BENZODIAZEPINES SCREEN NEGATIVE; URINE COCAINE SCREEN NEGATIVE; URINE MARIJUANA (THC) SCREEN NEGATIVE; URINE METHADONE SCREEN NEGATIVE; URINE PHENCYCLIDINE SCREEN NEGATIVE
[2018-12-23 20:04] LABS: ANION GAP 13 (5-19); BLOOD UREA NITROGEN 46 mg/dL (7-20); CALCIUM 9.9 mg/dL (8.4-10.2); CARBON DIOXIDE 23 mmol/L (22-30); CHLORIDE 98 mmol/L (98-107)
[2018-12-23 20:25] VITALS: BP 105/94
[2018-12-23 20:25] LABS: POTASSIUM 4.6 mmol/L (3.6-5.0)
[2018-12-23 20:27] LABS: GLUCOSE 501 mg/dL (75-110)
--- NOTE | 2018-12-23 22:20 | EKG REPORT ---
SEVERITY:- ABNORMAL ECG - SINUS TACHYCARDIA LVH WITH SECONDARY REPOLARIZATION ABNORMALITY ABNORMAL T, PROBABLE ISCHEMIA, LATERAL LEADS BORDERLINE PROLONGED QT INTERVAL : Confirmed by: Rose Short MD 23-Dec-2018 22:18:32
== END | disposition short-term general hospital (02) ==
LOC: ER 12:11
DX: I21.4 Non-ST elevation (NSTEMI) myocardial infarction (principal); E11.00 Type 2 diabetes mellitus with hyperosmolarity without nonketotic hyperglycemic-hyperosmolar coma (NKHHC); E11.65 Type 2 diabetes mellitus with hyperglycemia; E87.5 Hyperkalemia; R07.9 Chest pain, unspecified; N93.9 Abnormal uterine and vaginal bleeding, unspecified; R10.13 Epigastric pain; M79.604 Pain in right leg; M79.605 Pain in left leg; R06.02 Shortness of breath; R11.0 Nausea; R61 Generalized hyperhidrosis; Z87.891 Personal history of nicotine dependence; I50.9 Heart failure, unspecified; I11.0 Hypertensive heart disease with heart failure; E11.9 Type 2 diabetes mellitus without complications
CPT/HCPCS: 93005; 36415; 82550; 83735; 83930; 84443; 83935; 85025; 80053; 81001; 84484; 80307; 71046; 70450; 93010; J0610; J2270; J1815; J7030

== ENCOUNTER 2019-04-10 17:31 | Observation (INO) | payer MEDICAID ==
--- NOTE | 2019-04-10 18:35 | ER Document Report ---
ED Medical Screen (RME) - General Chief Complaint: Shortness Of Breath Stated Complaint: SHORT OF BREATH Time Seen by Provider: 04/10/19 18:32 Primary Care Provider: CORBIN MAGAÑA FNP-C [Primary Care Provider] - Follow up as needed TRAVEL OUTSIDE OF THE [place] IN LAST 30 DAYS: No - HPI Notes: 04/10/19 18:34 Patient is a 59-year-old female with a history of hypertension, diabetes, CHF who presents complaining of feeling short of breath for the past 5 months. Patient states that she did have some intermittent chest pain with the last episode prior to arrival. Denies drug allergies. Denies any prolonged immobilization, distance travel, recent surgery/trauma, personal cancer history, hormone use, or previous DVT/PE. Denies LY, fever, neck pain, URI, n/v/d, Abd pain, dysuria, back pain, or rash. I have treated and performed a rapid initial assessment of this patient. A comprehensive ED assessment and evaluation of the patient, analysis of test results and completion of medical decision making process will be conducted by additional ED providers. PHYSICAL EXAMINATION: GENERAL: Well-appearing, well-nourished and in no acute distress. A&Ox4. Answers questions appropriately. LUNGS: Breath sounds clear to auscultation bilaterally and equal. No wheezes rales or rhonchi. HEART: Regular rate and rhythm without murmurs, rubs, gallops. Extremities: No cyanosis, clubbing, or edema b/l. French negative bilaterally. No lower extremity asymmetry. NEUROLOGICAL: Normal speech, normal gait. PSYCH: Normal mood, normal affect. - Related Data Allergies/Adverse Reactions: No Known Allergies Allergy (Verified 04/10/19 18:32) Past Medical History - Past Medical History Cardiac Medical History: Reports: Hx Congestive Heart Failure - Grade 1/4 left ventricular diastolic dysfunction, Hx Heart Attack, Hx Hypertension Neurological Medical History: Reports: Hx Seizures Endocrine Medical History: Reports: Hx Diabetes Mellitus Type 2 - "Borderline" per patient Renal/ Medical History: Denies: Hx Peritoneal Dialysis GI Medical History: Reports: Hx Gastroesophageal Reflux Disease Psychiatric Medical History: Reports: Hx Depression Past Surgical History: Reports: Hx Orthopedic Surgery - bilat feet - Immunizations Hx Diphtheria, Pertussis, Tetanus Vaccination: No Physical Exam - Vital signs Vitals: Temp Pulse Resp BP Pulse Ox 98 F 77 24 H 188/92 H 100 04/10/19 18:04 04/10/19 18:04 04/10/19 18:04 04/10/19 18:04 04/10/19 18:04 Course - Vital Signs Vital signs: Temp Pulse Resp BP Pulse Ox 98 F 77 24 H 188/92 H 100 04/10/19 18:04 04/10/19 18:04 04/10/19 18:04 04/10/19 18:04 04/10/19 18:04 Doctor's Discharge - Discharge Referrals: CORBIN MAGAÑA, DRILLING INSPECTOR-C [Primary Care Provider] - Follow up as needed
--- NOTE | 2019-04-10 19:21 | RADIOLOGY REPORT (SQ) ---
EXAM DESCRIPTION: CHEST 2 VIEWS COMPLETED DATE/TIME: 04/10/2019 7:10 pm REASON FOR STUDY: SOB COMPARISON: Chest radiographs 12/23/18. EXAM PARAMETERS: NUMBER OF VIEWS: two views TECHNIQUE: Digital Frontal and Lateral radiographic views of the chest acquired. RADIATION DOSE: NA LIMITATIONS: none FINDINGS: LUNGS AND PLEURA: No opacities, masses or pneumothorax. No pleural effusion. MEDIASTINUM AND HILAR STRUCTURES: No masses or contour abnormalities. HEART AND VASCULAR STRUCTURES: Heart normal size. No evidence for failure. BONES: No acute findings. HARDWARE: None in the chest. OTHER: No other significant finding. IMPRESSION: NO ACUTE RADIOGRAPHIC FINDING IN THE CHEST. TECHNICAL DOCUMENTATION: JOB ID: [id number] [employer]- All Rights Reserved Reading location - IP/workstation name: [email or web address]
[2019-04-10 19:56] LABS: ABSOLUTE BASOPHILS # (AUTO) 0.1 10^3/uL (0.0-0.2); ABSOLUTE EOSINOPHILS # (AUTO) 0.1 10^3/uL (0.0-0.6); ABSOLUTE LYMPHOCYTES (AUTO) 1.8 10^3/uL (0.5-4.7); ABSOLUTE MONOCYTES (AUTO) 0.6 10^3/uL (0.1-1.4); ABSOLUTE NEUT (AUTO) 6.2 10^3/uL (1.7-8.2); BASOPHILS % (AUTO) 0.9 % (0-2); EOSINOPHILS % (AUTO) 1.7 % (0-6); HEMATOCRIT 40.1 % (36.0-47.0); HEMOGLOBIN 13.6 g/dL (12.0-15.5); LYMPHOCYTES % (AUTO) 20.1 % (13-45); MEAN CORPUSCULAR HEMOGLOBIN 28.2 pg (27.0-33.4); MEAN CORPUSCULAR HGB CONC 33.9 g/dL (32.0-36.0); MEAN CORPUSCULAR VOLUME 83 fl (80-97); MONOCYTES % (AUTO) 7.1 % (3-13); PLATELET COUNT 260 10^3/uL (150-450); RED BLOOD COUNT 4.84 10^6/uL (3.72-5.28); RED CELL DISTRIBUTION WIDTH 14.4 % (11.5-14.0); SEGMENTED NEUTROPHILS % (AUTO) 70.2 % (42-78); TOTAL CELLS COUNTED % (AUTO) 100 %; WHITE BLOOD COUNT 8.8 10^3/uL (4.0-10.5)
[2019-04-10 20:06] LABS: ALBUMIN 4.2 g/dL (3.5-5.0); ALKALINE PHOSPHATASE 70 U/L (38-126); ANION GAP 11 (5-19); ASPARTATE AMINO TRANSFERASE 33 U/L (14-36); BILIRUBIN,DIRECT 0.2 mg/dL (0.0-0.4); BILIRUBIN,TOTAL 0.5 mg/dL (0.2-1.3); BLOOD UREA NITROGEN 16 mg/dL (7-20); CALCIUM 9.5 mg/dL (8.4-10.2); CARBON DIOXIDE 28 mmol/L (22-30); CHLORIDE 104 mmol/L (98-107); GLUCOSE 90 mg/dL (75-110)
[2019-04-10 20:18] LABS: TROPONIN I 0.012 ng/mL
--- NOTE | 2019-04-10 20:47 | ER Document Report ---
ED Respiratory Problem - General Chief Complaint: Shortness Of Breath Stated Complaint: SHORT OF BREATH Time Seen by Provider: 04/10/19 18:32 Mode of Arrival: Ambulatory Information source: Patient Notes: 59-year-old female presented to ED for complaint of shortness of breath for the past 5 months. She states that it has been worse for the last couple days. She has had intermittent chest pain last episode just before coming to the emergency room. States she does not have any chest pain at this time. She does have a history of high blood pressure high cholesterol diabetes CHF. She states she has been out of some of her meds but she has refilled them at this time. She has not taken her blood pressure medicine today but she has felt it on the way and she is going to take it now. She is alert oriented respirations regular and unlabored speaking in full sentences. Patient states she is feeling much better at this time. Patient cardiac enzymes are negative. TRAVEL OUTSIDE OF THE [place] IN LAST 30 DAYS: No - HPI Patient complains to provider of: Chest pain, CHF, Short of breath Onset: Other Duration: Intermittent episodes - Intermittently 5 months Quality of pain: No pain Severity: None Pain Level: Denies Context: Hx CHF Cough: Nonproductive Sputum amount: None Associated symptoms: Chest pain/discomfort, Short of breath Similar symptoms previously: Yes Recently seen / treated by doctor: Yes - Related Data Allergies/Adverse Reactions: No Known Allergies Allergy (Verified 04/10/19 18:32) Home Medications: synthroid. unknown cholesterol medication. insulin Past Medical History - General Information source: Patient - Social History Smoking Status: Never Smoker Chew tobacco use (# tins/day): No Frequency of alcohol use: None Drug Abuse: None Lives with: Family Family History: CVA - mom dies at 42 year old from stroke father alive, Malignancy Patient has suicidal ideation: No Patient has homicidal ideation: No - Past Medical History Cardiac Medical History: Reports: Hx Congestive Heart Failure - Grade 1/4 left ventricular diastolic dysfunction, Hx Heart Attack, Hx Hypertension Pulmonary Medical History: Reports: None EENT Medical History: Reports: None Neurological Medical History: Reports: Hx Seizures Endocrine Medical History: Reports: Hx Diabetes Mellitus Type 2 - "Borderline" per patient Renal/ Medical History: Reports: None. Denies: Hx Peritoneal Dialysis Malignancy Medical History: Reports: None GI Medical History: Reports: Hx Gastroesophageal Reflux Disease Musculoskeletal Medical History: Reports None Skin Medical History: Reports None Psychiatric Medical History: Reports: Hx Depression Traumatic Medical History: Reports: None Infectious Medical History: Reports: None Past Surgical History: Reports: Hx Orthopedic Surgery - bilat feet - Immunizations Hx Diphtheria, Pertussis, Tetanus Vaccination: No Hx Pneumococcal Vaccination: 11/16/13 Review of Systems - Review of Systems Constitutional: No symptoms reported EENT: No symptoms reported Cardiovascular: Chest pain Respiratory: Short of breath Gastrointestinal: No symptoms reported Genitourinary: No symptoms reported Female Genitourinary: No symptoms reported Musculoskeletal: No symptoms reported Skin: No symptoms reported Hematologic/Lymphatic: No symptoms reported Neurological/Psychological: No symptoms reported -: Yes All other systems reviewed and negative Physical Exam - Vital signs Vitals: Temp Pulse Resp BP Pulse Ox 98 F 77 24 H 188/92 H 100 04/10/19 18:04 04/10/19 18:04 04/10/19 18:04 04/10/19 18:04 04/10/19 18:04 Interpretation: Normal - General General appearance: Appears well, Alert - HEENT Head: Normocephalic, Atraumatic Eyes: Normal Pupils: PERRL - Respiratory Respiratory status: No respiratory distress Chest status: Nontender Breath sounds: Normal Chest palpation: Normal - Cardiovascular Rhythm: Regular Heart sounds: Normal auscultation Murmur: No - Abdominal Inspection: Normal Distension: No distension Bowel sounds: Normal Tenderness: Nontender Organomegaly: No organomegaly - Back Back: Normal, Nontender - Extremities General upper extremity: Normal inspection, Nontender, Normal color, Normal ROM, Normal temperature General lower extremity: Normal inspection, Nontender, Normal color, Normal ROM, Normal temperature, Normal weight bearing. No: French's sign - Neurological Neuro grossly intact: Yes Cognition: Normal Orientation: AAOx4 [place] Coma Scale Eye Opening: Spontaneous [place] Coma Scale Verbal: Oriented [place] Coma Scale Motor: Obeys Commands [place] Coma Scale Total: 15 Speech: Normal Motor strength normal: LUE, RUE, LLE, RLE Sensory: Normal - Psychological Associated symptoms: Normal affect, Normal mood - Skin Skin Temperature: Warm Skin Moisture: Dry Skin Color: Normal Course - Re-evaluation Re-evalutation: 04/11/19 08:24 Admitted for observation to hospitalist for chest pain with increase in troponin. - Vital Signs Vital signs: Temp Pulse Resp BP Pulse Ox 97.5 F 78 17 137/85 H 99 04/11/19 08:20 04/11/19 08:20 04/11/19 08:20 04/11/19 08:20 04/11/19 08:20 - Laboratory Result Diagrams: 04/10/19 19:23 04/10/19 19:23 Laboratory results interpreted by me: 04/10/19 04/10/19 04/10/19 19:23 19:23 19:23 RDW 14.4 H Est GFR (MDRD) Non-Af 56 L Hemoglobin A1c % NT-Pro-B Natriuret Pep 341 H 04/10/19 19:23 RDW Est GFR (MDRD) Non-Af Hemoglobin A1c % 7.2 H NT-Pro-B Natriuret Pep - Diagnostic Test Radiology reviewed: Image reviewed, Reports reviewed Discharge - Discharge Clinical Impression: Chest pain Qualifiers: Chest pain type: other chest pain Qualified Code(s): R07.89 - Other chest pain Disposition: ADMITTED OBSERVATION Admitting Provider: Jeffery (Hospitalist) Unit Admitted: Telemetry
--- NOTE | 2019-04-10 22:53 | EKG REPORT ---
SEVERITY:- ABNORMAL ECG - SINUS RHYTHM LVH WITH SECONDARY REPOLARIZATION ABNORMALITY BORDERLINE PROLONGED QT INTERVAL : Confirmed by: Rose Short MD 10-Apr-2019 22:53:10
[2019-04-11] MEDS ORDERED: ASPIRIN 81 MG TABLET, CHEWABLE PO ONE (00:42)
[2019-04-11] MEDS ORDERED: ONDANSETRON HCL INJ/PF 4 MG/2 ML SDV IV PRN (01:08)
[2019-04-11] MEDS ORDERED: MAGNESIUM HYDROXIDE SUSP 30 ML UDCUP PO PRN (01:08)
[2019-04-11] MEDS ORDERED: HYDRALAZINE HCL INJ/PF 20 MG/1 ML SDV IV PRN (01:13)
[2019-04-11] MEDS ORDERED: ACETAMINOPHEN 325 MG TABLET PO PRN (01:13)
[2019-04-11] MEDS ORDERED: MORPHINE SULFATE 10 MG/ML INJ IV PRN ×3 (01:13)
[2019-04-11] MEDS ORDERED: METOPROLOL TARTRATE PF/INJ 5 MG/5 ML SDV IV PRN (01:13)
[2019-04-11] MEDS ORDERED: DEXTROSE 40% GEL 15 GM TUBE PO PRN ×2 (01:14)
[2019-04-11] MEDS ORDERED: DEXTROSE 50%-WATER 25 GM/50 ML DISP.SYRIN IV PRN ×2 (01:14)
[2019-04-11] MEDS ORDERED: GLUCAGON,HUMAN RECOMB 1 MG INJ IM PRN (01:14)
[2019-04-11] MEDS: MAG HYDROX/AL HYDROX/SIMETH SUSP 30 ML UDCUP PO PRN ×2 (02:52→08:43)
--- NOTE | 2019-04-11 04:43 | PDOC H&P ---
History of Present Illness Admission Date/PCP: 04/11/19 00:29 LISSET MARTINEZ MD Patient complains of: Dyspnea History of Present Illness: ALLEN BISHOP is a 59 year old female who presented to the emergency room with a 5-month history of dyspnea. Patient admits to having moderate dyspnea over the last 5 months which she feels has worsened somewhat over the last 3 days. Her dyspnea has been accompanied by intermittent 2-3 second episodes of severe sharp stabbing pain in her central and left chest without radiation and not related to breathing, movement or activity level. She admits poor compliance with her current medical regimen for her numerous chronic medical problems. She has not identified any aggravating or ameliorating factors for her dyspnea. In the emergency room she was found to have an initial normal troponin and an EKG which showed no evidence of myocardial ischemia or injury. A second troponin I 4 hours later showed a rise from 0.012 up to 0.016. At the insistence of the emergency room physician the patient was admitted to observation status for further evaluation. Past Medical History Cardiac Medical History: Reports: Congestive Heart Failure - Chronic diastolic congestive heart failure, Coronary Artery Disease, Myocardial Infarction, Hyperlipidema, Hypertension Pulmonary Medical History: Denies: Asthma, Chronic Obstructive Pulmonary Disease (COPD), Respiratory Failure, Sleep Apnea EENT Medical History: Denies: Cataracts, Ears - Hearing aids Neurological Medical History: Reports: Seizures Denies: Hemorrhagic CVA, Ischemic CVA Endocrine Medical History: Reports: Diabetes Mellitus Type 2 - "Borderline" per patient, Obesity Denies: Diabetes Mellitus Type 1, Hyperthyroidism, Hypothyroidism Renal/ Medical History: Denies: Chronic Kidney Disease, Nephrolithiasis Malignancy Medical History: Reports: None GI Medical History: Reports: Gastroesophageal Reflux Disease, Other - GI bleeding with anemia Denies: Cirrhosis, Crohn's Disease, Hepatitis, Peptic Ulcer Disease, Ulcerative Colitis Musculoskeltal Medical History: Denies: Arthritis, Gout Skin Medical History: Denies: Eczema, Psoriasis Psychiatric Medical History: Reports: Depression Denies: Alcohol Dependency, Substance Abuse, Tobacco Dependency Traumatic Medical History: Reports: None Hematology: Reports: Anemia - With GI bleeding Denies: Bleeding Tendencies Infectious Medical History: Reports: None Past Surgical History Past Surgical History: Reports: Orthopedic Surgery - Bilateral foot surgery Social History Information Source: Patient Lives with: Family Smoking Status: Former Smoker Electronic Cigarette use?: No Frequency of Alcohol Use: None Hx Recreational Drug Use: No Drugs: None Hx Prescription Drug Abuse: No - Advance Directive Resuscitation Status: Full Code Surrogate healthcare decision maker:: Iwona Bess Family History Family History: CAD, CVA, Hypertension, Malignancy. denies: DM Parental Family History Reviewed: Yes Children Family History Reviewed: No Sibling(s) Family History Reviewed.: Yes Medication/Allergy Home Medications: Amlodipine Besylate [Norvasc 5 mg Tablet] 5 mg PO DAILY #30 tablet 09/10/14 Docusate Sodium [Colace 100 mg Capsule] 100 mg PO BID #60 capsule 09/10/14 Ferrous Sulfate [Feosol 325 mg Tablet] 325 mg PO BID #60 tablet 09/10/14 Omeprazole [Prilosec] 40 mg PO BID #60 capsule. 09/10/14 Oxycodone HCl/Acetaminophen [Percocet 5-325 mg Tablet] 1 tab PO QID #15 tablet 10/06/14 Olanzapine [Zyprexa 5 mg Tablet] 5 mg PO QHS 14 Days #14 tablet 02/01/18 Allergies/Adverse Reactions: No Known Allergies Allergy (Verified 04/10/19 18:32) Review of Systems Constitutional: ABSENT: chills, fever(s) Eyes: ABSENT: visual disturbances, other - Eye pain Ears: ABSENT: hearing changes, other - Ear pain Nose, Mouth, and Throat: ABSENT: headache(s), mouth pain, sore throat Cardiovascular: PRESENT: as per HPI, chest pain. ABSENT: dyspnea on exertion, edema, orthropnea, palpitations Respiratory: PRESENT: as per HPI, dyspnea. ABSENT: cough Gastrointestinal: ABSENT: abdominal pain, constipation, diarrhea, nausea, vomiting Musculoskeletal: ABSENT: back pain, joint swelling, muscle weakness Integumentary: ABSENT: pruritus, rash Neurological: ABSENT: confusion, convulsions, focal weakness, memory loss, syncope Psychiatric: ABSENT: anxiety, depression Endocrine: ABSENT: cold intolerance, heat intolerance Hematologic/Lymphatic: ABSENT: easy bleeding, easy bruising Allergic/Immunologic: ABSENT: seasonal rhinorrhea Physical Exam Vital Signs: Temp Pulse Resp BP Pulse Ox 98 F 77 15 160/86 H 97 04/10/19 18:04 04/10/19 18:04 04/11/19 00:02 04/11/19 00:02 04/11/19 00:02 Intake & Output 04/09/19 04/10/19 04/11/19 23:59 23:59 23:59 Weight 84.7 kg General appearance: PRESENT: no acute distress, cooperative, obese Head exam: PRESENT: atraumatic, normocephalic Eye exam: PRESENT: conjunctiva pink. ABSENT: conjunctival injection, scleral icterus Ear exam: PRESENT: normal external ear exam. ABSENT: bleeding, drainage Mouth exam: PRESENT: dry mucosa, neck supple Neck exam: ABSENT: JVD, thyromegaly, tracheal deviation Respiratory exam: PRESENT: clear to auscultation elvia, symmetrical, unlabored Cardiovascular exam: PRESENT: RRR. ABSENT: clicks, gallop, rubs Pulses: PRESENT: normal radial pulses, normal dorsalis pedis pul Vascular exam: PRESENT: normal capillary refill. ABSENT: pallor GI/Abdominal exam: PRESENT: normal bowel sounds, soft Rectal exam: PRESENT: deferred Extremities exam: ABSENT: joint swelling, pedal edema Musculoskeletal exam: ABSENT: deformity, dislocation Neurological exam: PRESENT: alert, oriented to person, oriented to place, oriented to time, oriented to situation, CN II-XII grossly intact. ABSENT: motor sensory deficit Psychiatric exam: PRESENT: appropriate affect, normal mood Skin exam: PRESENT: dry, intact, warm. ABSENT: jaundice, rash, urticaria Results Laboratory Results: 04/10/19 19:23 04/10/19 19:23 04/10/19 04/10/19 19:23 19:23 WBC 8.8 RBC 4.84 Hgb 13.6 Hct 40.1 MCV 83 MCH 28.2 MCHC 33.9 RDW 14.4 H Plt Count 260 Seg Neutrophils % 70.2 Sodium 143.0 Potassium 4.0 Chloride 104 Carbon Dioxide 28 Anion Gap 11 BUN 16 Creatinine 1.01 Est GFR ( Amer) > 60 Glucose 90 Calcium 9.5 Total Bilirubin 0.5 AST 33 Alkaline Phosphatase 70 Total Protein 8.0 Albumin 4.2 04/10/19 04/10/19 19:23 23:10 Troponin I 0.012 0.016 NT-Pro-B Natriuret Pep 341 H Impressions: Chest X-Ray 04/10/19 18:34 IMPRESSION: NO ACUTE RADIOGRAPHIC FINDING IN THE CHEST. Assessment and Plan - Diagnosis (1) Chest pain Qualifiers: Chest pain type: other chest pain Qualified Code(s): R07.89 - Other chest pain; R07.8 - Other chest pain Is this a current diagnosis for this admission?: Yes (2) Malignant hypertension Is this a current diagnosis for this admission?: Yes (3) Diabetes mellitus type 2 in obese Is this a current diagnosis for this admission?: Yes (4) Chronic diastolic congestive heart failure Is this a current diagnosis for this admission?: Yes (5) Hyperlipidemia Qualifiers: Hyperlipidemia type: unspecified Qualified Code(s): E78.5 - Hyperlipidemia, unspecified Is this a current diagnosis for this admission?: Yes (6) Gastroesophageal reflux disease Qualifiers: Esophagitis presence: esophagitis presence not specified Qualified Code(s): K21.9 - Gastro-esophageal reflux disease without esophagitis Is this a current diagnosis for this admission?: Yes (7) Depression Qualifiers: Depression Type: dysthymia Qualified Code(s): F34.1 - Dysthymic disorder Is this a current diagnosis for this admission?: Yes (8) Obesity (BMI 30-39.9) Is this a current diagnosis for this admission?: Yes (9) Medical non-compliance Is this a current diagnosis for this admission?: Yes - Plan Summary Summary: Patient is admitted observation status to telemetry monitored bed. There she will receive routine supportive and symptomatic cares. Serial cardiac enzymes will be obtained to evaluate her chest pain for possible myocardial ischemia. The patient's blood pressure will be treated with intravenous hydralazine and/or intravenous metoprolol to maintain a systolic blood pressure less than 160 and a diastolic pressure less than 100. Patient will be started on her usual regimen for blood pressure control and control of her other medical problems as soon as her med list can be verified and reconciled. - Time Time Spent with patient: 15-24 minutes Medications reviewed and adjusted accordingly: Yes Anticipated discharge: Home Within: within 48 hours - Inpatient Certification Based on my medical assessment, after consideration of the patient's comorbidities, presenting symptoms, or acuity I expect that the services needed warrant INPATIENT care.: No I certify that my determination is in accordance with my understanding of Medicare's requirements for reasonable and necessary INPATIENT services [42 CFR 412.3e].: No Medical Necessity: Need For Continuous Telemetry Monitoring
[2019-04-11] MEDS ORDERED: INFLUENZA QUAD (6MOS+) 2019-20 VAC 0.5 ML SYR IM ONE (04:51)
[2019-04-11 05:53] LABS: CREATINE KINASE MB 1.51 ng/mL (<4.55); TROPONIN I 0.023 ng/mL
[2019-04-11] MEDS ORDERED: HEPARIN SOD (PORCINE) 5,000 UNIT/ML 1 ML VIAL SUBCUT SCH (06:00)
[2019-04-11] MEDS ORDERED: INSULIN REG, HUMAN 100 UNIT/ML 3 ML VIAL (PYX) SUBCUT SCH (08:00)
[2019-04-11 08:21] VITALS: BP 137/85
[2019-04-11] MEDS ORDERED: FAMOTIDINE 20 MG TABLET PO SCH (10:00)
[2019-04-11] MEDS ORDERED: DOCUSATE SODIUM 100 MG CAPSULE PO SCH (10:00)
--- NOTE | 2019-04-11 16:43 | PDOC DISCHARGE SUMMARY ---
Impression - Admit/DC Date/PCP Admission Date/Primary Care Provider: 04/11/19 00:29 LISSET MARTINEZ MD Discharge Date: 04/11/19 - Assessment Summary: Patient is admitted observation status to telemetry monitored bed. There she will receive routine supportive and symptomatic cares. Serial cardiac enzymes will be obtained to evaluate her chest pain for possible myocardial ischemia. The patient's blood pressure will be treated with intravenous hydralazine and/or intravenous metoprolol to maintain a systolic blood pressure less than 160 and a diastolic pressure less than 100. Patient will be started on her usual regimen for blood pressure control and control of her other medical problems as soon as her med list can be verified and reconciled. 04/11/2019 She tells me today that she is known for 6 years she needed to see a management accounts manager had cardiac trouble. Tells me that her local management accounts manager here has been trying to get her to go to vitamins because of a low ejection fracture, that her heart anderson were "thickened". Troponins basically did first was 0.012-second 1 was 0.016 third was 0.023. CK- MB indexes were negative. He has been having more trouble now for the last 5 months. Chest x-ray last night was negative Today's patient's vital signs temperature 97.5, pulse 78 and regular, blood pressure 137/85, O2 sat 99% on room air. Discharge patient home today in good condition she is to call her management accounts manager tomorrow for a referral to [facility] further work-up Medically stable for discharge Stress test and echo are not indicated at this time - Additional Information Resuscitation Status: Full Code Discharge Diet: As Tolerated Discharge Activity: Activity As Tolerated Referrals: ANTHONY DEL REAL [Other] (PLEASE TRY TO SCEDULE APPT FOR ) CORBIN MAGAÑA, CURRICULUM DEVELOPMENT MANAGER-C [COMMUNITY BASED STAFF] - Follow up as needed Home Medications: Chlorthalidone [Hygroton 25 mg Tablet] 25 mg PO Q12 04/11/19 Insulin Glargine,Hum.rec.anlog [Lantus Insulin 100 Unit/mL Insulin Pen] 20 units SUBCUT QAM 04/11/19 Insulin Glargine,Hum.rec.anlog [Lantus Insulin 100 Unit/mL Insulin Pen] 25 units SUBCUT QPM 04/11/19 Levothyroxine Sodium [Synthroid 0.025 mg Tablet] 0.025 mg PO Q6AM 04/11/19 Rosuvastatin Calcium [Crestor 20 mg Tablet] 20 mg PO QHS 04/11/19 History of Present Illiness History of Present Illness: ALLEN BISHOP is a 59 year old female Physical Exam Vital Signs: Temp Pulse Resp BP Pulse Ox 97.5 F 78 17 137/85 H 99 04/11/19 11:14 04/11/19 11:14 04/11/19 11:14 04/11/19 11:14 04/11/19 11:14 Intake & Output 04/10/19 04/11/19 04/12/19 06:59 06:59 06:59 Weight 84.3 kg Results Laboratory Results: WBC 8.8 10^3/uL (4.0-10.5) 04/10/19 19:23 RBC 4.84 10^6/uL (3.72-5.28) 04/10/19 19:23 Hgb 13.6 g/dL (12.0-15.5) 04/10/19 19:23 Hct 40.1 % (36.0-47.0) 04/10/19 19:23 MCV 83 fl (80-97) 04/10/19 19:23 MCH 28.2 pg (27.0-33.4) 04/10/19 19:23 MCHC 33.9 g/dL (32.0-36.0) 04/10/19 19:23 RDW 14.4 % (11.5-14.0) H 04/10/19 19:23 Plt Count 260 10^3/uL (150-450) 04/10/19 19:23 Lymph % (Auto) 20.1 % (13-45) 04/10/19 19:23 [facility] % (Auto) 7.1 % (3-13) 04/10/19 19:23 Eos % (Auto) 1.7 % (0-6) 04/10/19 19:23 Baso % (Auto) 0.9 % (0-2) 04/10/19 19:23 Absolute Neuts (auto) 6.2 10^3/uL (1.7-8.2) 04/10/19 19:23 Absolute Lymphs (auto) 1.8 10^3/uL (0.5-4.7) 04/10/19 19:23 Absolute Monos (auto) 0.6 10^3/uL (0.1-1.4) 04/10/19 19:23 Absolute Eos (auto) 0.1 10^3/uL (0.0-0.6) 04/10/19 19:23 Absolute Basos (auto) 0.1 10^3/uL (0.0-0.2) 04/10/19 19:23 Seg Neutrophils % 70.2 % (42-78) 04/10/19 19:23 Sodium 143.0 mmol/L (137-145) 04/10/19 19:23 Potassium 4.0 mmol/L (3.6-5.0) 04/10/19 19:23 Chloride 104 mmol/L (98-107) 04/10/19 19:23 Carbon Dioxide 28 mmol/L (22-30) 04/10/19 19:23 Anion Gap 11 (5-19) 04/10/19 19:23 BUN 16 mg/dL (7-20) 04/10/19 19:23 Creatinine 1.01 mg/dL (0.52-1.25) 04/10/19 19:23 Est GFR ( Amer) > 60 (>60) 04/10/19 19:23 Est GFR (MDRD) Non-Af 56 (>60) L 04/10/19 19:23 Glucose 90 mg/dL (75-110) 04/10/19 19:23 POC Glucose 110 mg/dL (70-110) 04/11/19 07:30 Hemoglobin A1c % 7.2 % (4.7-6.0) H 04/10/19 19:23 Calcium 9.5 mg/dL (8.4-10.2) 04/10/19 19:23 Total Bilirubin 0.5 mg/dL (0.2-1.3) 04/10/19 19:23 Direct Bilirubin 0.2 mg/dL (0.0-0.4) 04/10/19 19:23 Neonat Total Bilirubin Not Reportable 04/10/19 19:23 Neonat Direct Bilirubin Not Reportable 04/10/19 19:23 Neonat Indirect Bili Not Reportable 04/10/19 19:23 AST 33 U/L (14-36) 04/10/19 19:23 ALT 20 U/L (<35) 04/10/19 19:23 Alkaline Phosphatase 70 U/L (38-126) 04/10/19 19:23 Creatine Kinase 114 U/L (30-135) 04/11/19 05:00 CK-MB (CK-2) 1.51 ng/mL (<4.55) 04/11/19 05:00 Troponin I 0.023 ng/mL 04/11/19 05:00 NT-Pro-B Natriuret Pep 341 pg/mL (<125) H 04/10/19 19:23 Total Protein 8.0 g/dL (6.3-8.2) 04/10/19 19:23 Albumin 4.2 g/dL (3.5-5.0) 04/10/19 19:23 TSH 2.94 uIU/mL (0.47-4.68) 04/10/19 19:23 04/10/19 04/10/19 04/10/19 19:23 23:10 23:10 CK-MB (CK-2) 1.51 Troponin I 0.012 0.016 Cancelled NT-Pro-B Natriuret Pep 341 H 04/11/19 05:00 CK-MB (CK-2) 1.51 Troponin I 0.023 NT-Pro-B Natriuret Pep Impressions: Chest X-Ray 04/10/19 18:34 IMPRESSION: NO ACUTE RADIOGRAPHIC FINDING IN THE CHEST. Stroke Is this a Stroke Patient?: No Acute Heart Failure - Is this a Heart Failure Patient?: No
== END 2019-04-11 11:50 | disposition home or self-care (01) ==
LOC: ER 17:31 → EH 04-11 00:29 → 5 04-11 01:29
PROVIDERS: ADMIT Emergency Medicine; ATTEND Emergency Medicine
DX: R07.89 Other chest pain (principal); I11.0 Hypertensive heart disease with heart failure; I50.32 Chronic diastolic (congestive) heart failure; I25.10 Atherosclerotic heart disease of native coronary artery without angina pectoris; E11.9 Type 2 diabetes mellitus without complications; E66.9 Obesity, unspecified; E78.5 Hyperlipidemia, unspecified; F34.1 Dysthymic disorder; K21.9 Gastro-esophageal reflux disease without esophagitis; I25.2 Old myocardial infarction; Z91.14 Patient's other noncompliance with medication regimen; Z87.891 Personal history of nicotine dependence; Z82.49 Family history of ischemic heart disease and other diseases of the circulatory system; Z79.899 Other long term (current) drug therapy; Z68.39 Body mass index [BMI] 39.0-39.9, adult; Z79.4 Long term (current) use of insulin; Z82.3 Family history of stroke; Z23 Encounter for immunization
CPT/HCPCS: 93005; 99285; 36415 ×2; 82553; 82962; 82550; 84443; 85025; 80053; 84484 ×2; 83036; 83880; 71046; 90686; 93010; G0378; J3490 ×2; J0360